=== PATIENT | female | born 1945 | race Caucasian/White ===

== ENCOUNTER → 2016-09-27 13:41 | Outpatient (CLI) | payer MEDICARE, OTHER | END | disposition home or self-care (01) | LOC: D.MRI 13:41 | DX: M54.12 Radiculopathy, cervical region (principal) ==

== ENCOUNTER 2016-10-24 10:49 | Emergency (ER) | payer MEDICARE, OTHER ==
[2016-10-24 11:56] LABS: APPEARANCE CLEAR (CLEAR); BACTERIA MODERATE /hpf (NONE SEEN); BILIRUBIN NEGATIVE (NEGATIVE); COLOR YELLOW (YELLOW); GLUCOSE NEGATIVE (NEGATIVE); KETONE SMALL mg/dL (NEGATIVE); LEUKOCYTE ESTERASE TRACE (NEGATIVE); MUCUS >1+ /lpf (NONE SEEN); NITRITE NEGATIVE (NEGATIVE); PROTEIN NEGATIVE (NEGATIVE); RED CELLS - URINE 0-5 /hpf (0-5); SPECIFIC GRAVITY 1.015 (1.005-1.020); UROBILINOGEN NORMAL (NORMAL)
[2016-10-24 11:58] LABS: BASOPHILS 0.3 % (0-2); EOSINOPHILS 0.5 % (0-7); HEMATOCRIT 40.3 % (36.0-48.0); HEMOGLOBIN 13.4 g/dL (12-16); IMMATURE GRANULOCYTES 0.3 % (0-5); LYMPHOCYTES 19.2 % (15-50); MCH 30.9 pg (26.0-34.0); MCHC 33.3 g/dL (31.0-37.0); MCV 92.9 fL (80.0-100.0); MEAN PLATELET VOLUME 10.1 fL (7.4-10.4); MONOCYTES 4.1 % (2-11); NEUTROPHILS 75.6 % (40-80); PLATELET COUNT 298 10x3/uL (130-400); RBC 4.34 10x6/uL (4.00-5.40); RDW 12.9 % (11.5-14.5); WBC 7.9 10x3/uL (4.8-10.8)
[2016-10-24 12:15] LABS: ALBUMIN 3.9 g/dL (3.4-5.0); ALKALINE PHOSPHATASE 99 U/L (46-116); ALT (SGPT) 30 U/L (10-68); AMYLASE - SERUM 146 U/L (25-115); BILIRUBIN - TOTAL 0.76 mg/dL (0.2-1.3); CALC OSMOLALITY 272 mosm/kg (275-300); CARBON DIOXIDE 24.4 mmol/L (21.0-32.0); CHLORIDE - SERUM 102 mmol/L (98-107); CREATININE - SERUM 0.8 mg/dL (0.6-1.3); GLUCOSE 115 mg/dL (74-106); LIPASE 112 U/L (73-393); POTASSIUM - SERUM 3.9 mmol/L (3.5-5.1); PROTEIN - SERUM 7.6 g/dL (6.4-8.2); SODIUM 136 mmol/L (136-145); UREA NITROGEN 12 mg/dL (7-18); eGFR NON AFRICAN AMERICAN 75 mL/min (90-120)
== END 2016-10-24 15:35 | disposition home or self-care (01) ==
LOC: D.ER 10:49
PROVIDERS: Family Medicine
DX: K59.00 Constipation, unspecified (principal); N39.0 Urinary tract infection, site not specified; R11.2 Nausea with vomiting, unspecified; F17.200 Nicotine dependence, unspecified, uncomplicated

== ENCOUNTER → 2017-12-20 21:07 | Outpatient (CLI) | payer MEDICARE, OTHER | END | disposition home or self-care (01) | LOC: D.MAMMO 15:45 | DX: Z12.31 Encounter for screening mammogram for malignant neoplasm of breast (principal) ==

== ENCOUNTER → 2018-09-14 12:11 | Outpatient (CLI) | payer MEDICARE, OTHER ==
--- NOTE | ~2018-09-14 | ST ---
PATIENT:DEBORA JAMES MEDICAL RECORD: [id number] SEX: F LOCATION:[facility] ORDER #: ADMISSION DATE: 09/14/18 AGE OF PATIENT: 73 REFERRING PHYSICIAN: INTERPRETING PHYSICIAN: JOCE VILLARREAL MD DATE OF SERVICE: 09/14/2018 NUCLEAR STRESS TEST INDICATION: Chest pain, shortness of breath. She was exercised on standard Lexiscan protocol with 26 mCi of sestamibi injected at peak stress, 8 mCi used previously for rest images. FINDINGS: Gated SPECT reveals preserved ejection fraction at 74% with good wall motioning and thickening and brightening throughout all segments. SPECT imaging Cardiolite was used as myocardial fusion agent. There are definite reversible changes at the apex, this includes the anterior apex, inferior apex, and apex itself. The degree of reversibility is moderate. The amount of myocardium involved is small to moderate. OVERALL IMPRESSION: This is an abnormal nuclear stress test. There is reversibility at the apex of the amount of myocardium involved is not large. I would optimize medical management, proceed with coronary angiography only if symptomatology persisted. TRANSINT:[id number] Voice Confirmation ID: [id number] DOCUMENT ID: [id number] JOCE VILLARREAL MD CC: MILES GUO [id number] DICTATION DATE: 09/14/18 1623 DISTRESSER: 09/15/18 0703 DEP CLI 09/14/18 [facility] [address] [place] [address]
== END | disposition home or self-care (01) ==
LOC: D.HCCARDIO 12:11
PROVIDERS: ATTEND Internal Medicine Interventional Cardiology
DX: R06.09 Other forms of dyspnea (principal)

== ENCOUNTER 2018-10-03 08:16 | Outpatient (CLI) | payer MEDICARE, OTHER ==
[~2018-10-03] VITALS: Ht 157.5 cm; Wt 68.2 kg
--- NOTE | ~2018-10-03 | HEMODYNAMI ---
PATIENT:DEBORA JAMES MEDICAL RECORD: [id number] : 49 LOCATION:[facility] ADMISSION DATE: 10/03/18 Generatedon:10/03/201810:23 Patient name: DEBORA JAMES Patient #: [id number] SSN: DO B: 1945 Date of study: 10/03/2018 Page: Of Hemodynamic Procedure Report Patient Data Patient Demographics Procedure consent was obtained First Name: DEBORA Gender: Female Last Name: JACOB : 1945 Middle Initial: WILL Age: 73 year(s) Patient #: [id number] Race: Unknown Additional ID: [id number] Contact details [address]: [address] [place] [address] State: [place] City: [facility] Zip code: [address] Admission Admission Data Admission Date: 10/03/2018 Admission Time: 8:16 Procedure Procedure Types Cath Procedure Diagnostic Procedure LHC LHC w/Coronaries Procedure Description Procedure Date Procedure Date: 10/03/2018 Procedure Start Time: 10:14 Procedure End Time: 10:22 Procedure Staff Name Function Abdifatah Yeung MD Performing Physician Darlin Campbell RT Monitor Noble Gu RN Nurse Curtis Carrera RT Scrub Gadiel Denis RN Fingernail Former Procedure Data Cath Procedure Fluoroscopy Diagnostic fluoroscopy Total fluoroscopy Time: 2.2 time: 2.2 min min Diagnostic fluoroscopy Total fluoroscopy dose: 364 dose: 364 mGy mGy Contrast Material Contrast Material Type Amount (ml) Isovue 300 46 Entry Location Entry Primary Successful Side Size Upsize Upsize Entry Closure Starkey ccessful Closure Location (Fr) 1 (Fr) 2 (Fr) Remarks Device Remarks Radial Right 6 Fr Mechanical artery Short Compression Estimated blood loss: 10 ml Diagnostic catheters Device Type Used For End Catheter Placement DIAGNOSTIC Clifton 110cm 5 Procedure Fr catheter ([id number]) DIAGNOSTIC JL 3.5 5Fr Procedure catheter ([id number]) Procedure Complications No complications Procedure Medications Medication Administration Route Dosage 0.9% NaCl I.V. 100 ml/hr Oxygen etCO2 Nasal cannula 2 l/min Heparin Flush Bag added to field 2 bags (1000units/500ml NS) Lidocaine 2% added to field 20 Radial Cocktail added to field 1 syringe (Verapamil 2mg/Nitro 400mcg/Heparin 1500units) Versed I.V. 2 mg Fentanyl I.V. 50 mcg Radial Cocktail I.A. 1 syringe (Verapamil 2mg/Nitro 400mcg/Heparin 1500units) Fentanyl I.V. 50 mcg Hemodynamics Rest Heart Rate: 64 (bpm) Snapshots Pre Cath Intra NCS Post Cath Vital Signs Time Heart Resp SPO2 etCO2 NIBP (mmHg) Rhythm Pain Sedation Rate (ipm) (%) (mmHg) Status Level (bpm) 10:03:06 61 26 100 0 156/82(114) NSR 0 (11) 10(A) , No pain 10:07:22 61 15 100 36.4 124/66(104) NSR 0 (11) 10(A) , No pain 10:11:34 63 14 100 40.8 123/62(94) NSR 0 (11) 10(A) , No pain 10:15:36 62 18 100 31.9 116/98(108) NSR 0 (11) 9(A) , No pain 10:19:48 67 18 97 42.3 109/60(76) NSR 0 (11) 9(A) , No pain Medications Time Medication Route Dose Verified Delivered Reason Notes Effectiveness by by 10:03:50 0.9% NaCl I.V. 100 Noble Noble Per ml/hr Riccardo Gu physician RN RN 10:03:59 Oxygen etCO2 2 l/min Noble Noble for low 02 Nasal Lorigan Lorigan sats cannula RN RN 10:04:08 Heparin Flush added 2 bags Noble Noble used for Bag to Lorigan Lorigan procedure (1000units/500ml field RN RN NS) 10:04:17 Lidocaine 2% added 20ml Noble Noble for local to vial Lorigan Lorigan anesthetic field RN RN 10:04:26 Radial Cocktail added 1 Noble Noble used for (Verapamil to syringe Lorigan Lorigan procedure 2mg/Nitro field RN RN 400mcg/Heparin 1500units) 10:13:26 Versed I.V. 2 mg Noble Noble for sedation Riccardo Gu RN RN 10:13:35 Fentanyl I.V. 50 mcg Noble Noble for sedation Riccardo Gu RN RN 10:15:05 Radial Cocktail I.A. 1 Nobleisai Gardiner for (Verapamil syringe Riccardo Yeung MD vasodilation 2mg/Nitro RN 400mcg/Heparin 1500units) 10:15:20 Fentanyl I.V. 50 mcg Noble Onble for sedation Riccardo Gu RN auto camp attendant Log Time Note 9:40:05 Gadiel Denis RN sent for patient. Start room use. 9:56:13 Time tracking: Regular hours (M-F 7:00 - 5:00) 9:56:16 Plan of Care:Hemodynamics will remain stable., Cardiac rhythm will remain stable., Comfort level will be maintained., Respiratory function will remain adequate., Patient/ family verbilizes understanding of procedure., Procedure tolerated without complication., Recovers from procedure without complications.. 9:56:21 Patient received from Pre/Post Procedure Room to CCL 1 Alert and oriented. Tansferred to table in Supine position. 9:56:23 Warm blankets applied, and gloria hugger turned on for patient comfort. 9:56:23 Correct patient and procedure confirmed by team. 9:56:24 Signed procedure consent form obtained from patient. 9:56:25 ECG and BP/O2 sat monitors applied to patient. 10:01:55 Vital chart was started 10:01:56 Baseline sample Acquired. 10:02:00 Rhythm: sinus rhythm 10:02:03 Full Disclosure recording started 10:02:08 H&P Date Dictated: 10/03/2018 New H&P dictated by physician.. 10:02:09 Pre-procedure instructions explained to patient. 10:02:10 Pre-op teaching completed and patient verbalized understanding. 10:02:12 Family in patients room. 10:02:14 Patient NPO since Midnight. 10:02:16 Is the patient allergic to Iodine/contrast media? No. 10:02:19 Is patient on blood thinner?No 10:02:20 Patient diabetic? No. 10:02:23 Previous problem with sedation/anesthesia? No ? 10:03:30 Snore? No 10:03:31 Sleep apnea? No 10:03:32 Deviated septum? No 10:03:33 Opens mouth fully? Yes 10:03:34 Sticks out tongue? Yes 10:03:36 Airway obstruction? No ? 10:03:39 Dentures? No ? 10:03:40 Pre procedure: right dorsailis pedis pulse 1+ Palpable, but thready & weak; easily obliterated 10:03:42 Modified Ben's test Ulnar < 7 seconds 10:03:44 Patient pain scale 0/10 ?. 10:03:50 0.9% NaCl 100 ml/hr I.V. was administered by Noble Gu RN; Per physician; 10:03:51 IV patent on arrival in left forearm with 0.9% NaCl at [facility]. 10:03:53 Lab results completed and on chart. 10:03:56 Right Radial & Right Groin area was prepped with chlora-prep and draped in sterile fashion 10:03:58 Alarms reviewed by R. N. 10:03:58 Sharps counted by scrub and verified by R.N. 10:03:59 Oxygen 2 l/min etCO2 Nasal cannula was administered by Noble Gu RN; for low 02 sats; 10:04:08 Heparin Flush Bag (1000units/500ml NS) 2 bags added to field was administered by Noble Gu RN; used for procedure; 10:04:17 Lidocaine 2% 20ml vial added to field was administered by Noble Gu RN; for local anesthetic; 10:04:26 Radial Cocktail (Verapamil 2mg/Nitro 400mcg/Heparin 1500units) 1 syringe added to field was administered by Noble Gu RN; used for procedure; 10:09:14 Use device set Radial Dx or PCI 10:09:15 ACIST Syringe (44412) opened to sterile field. 10:09:17 ACIST Hand Control (66756) opened to sterile field. 10:09:17 ACIST Manifold (79009) opened to sterile field. 10:09:17 Tegaderm 4 x 4 (1626W) opened to sterile field. 10:09:23 Bag Decanter (2001S) opened to sterile field. 10:09:24 Medline Cath Pack ([id number]) opened to sterile field. 10:09:24 DIAGNOSTIC WIRE .035 260cm J wire (108255) opened to sterile field. 10:09:25 MBrace Wrist Support ([id number]) opened to sterile field. 10:09:27 SHEATH 6FR Slender (80-1060) opened to sterile field. 10:12:13 --------ALL STOP TIME OUT------ 10:12:13 Final Timeout: patient, procedure, and site verified with staff and physician. All members of the team are in agreement. 10:12:16 Right groin site verified by team. 10:12:19 Maximum allowable Isovue 300 dose 300ml. Physician notified. (300ml for normal creatinines. For patients with creatinine of 1.7 or higher multiply weight(kg) x 5 divided by creatinine.) 10:12:23 Fire Safety Assessment: A--An alcohol-based skin anteseptic being used preoperatively., C--Open oxygen or nitrous oxide is being used., D--An ESU, laser, or fiber-optic light is being used. 10:12:25 Physical assessment completed. ASA score P 2 - A patient with mild systemic disease as per Abdifatah Yeung MD. 10:12:27 Sedation plan: IV Moderate Sedation Medication:Versed, Fentanyl 10:13:26 Versed 2 mg I.V. was administered by Noble Gu RN; for sedation; 10:13:28 Zero performed for pressure channel P1 10:13:35 Fentanyl 50 mcg I.V. was administered by Noble Gu RN; for sedation; 10:13:38 Procedure started. 10:14:29 Local anesthetic to right radial artery with Lidocaine 2% by Abdifatah Yeung MD.INITIAL ACCESS ONLY 10:14:49 A 6 Fr Short sheath was inserted into the Right Radial artery 10:15:05 Radial Cocktail (Verapamil 2mg/Nitro 400mcg/Heparin 1500units) 1 syringe I.A. was administered by Abdifatah Yeung MD; for vasodilation; 10:15:14 A DIAGNOSTIC Clifton 110cm 5 Fr catheter (282370) was advanced over the wire and used for Procedure. 10:15:20 Fentanyl 50 mcg I.V. was administered by Noble Gu RN; for sedation; 10:15:28 LV gram done using NICKERSON 10:15:33 Injector settings: Ml/sec: 5, Volume: 10, 10:16:05 EF : 60 % 10:16:51 RCA angiography performed. 10:17:18 Catheter exchanged over wire. 10:17:41 A DIAGNOSTIC JL 3.5 5Fr catheter (234343H) was advanced over the wire and used for Procedure. 10:19:05 LCA angiography performed. 10:19:36 Catheter removed. 10:19:43 Procedure ended.(Physican Out) 10:20:14 TR BAND Standard ([id number]) opened to sterile field. 10:20:49 Sheath removed intact; hemostasis achieved with Mechanical Compression to the Right Radial artery. 10:20:54 Fluoroscopy time 02.20 minutes. 10:21:00 Flurop Dose total: 364 10:21:00 Fluoroscopy dose: 364 mGy 10:21:03 Contrast amount:Isovue 300 46ml. 10:21:05 Sharps counted by scrub and verified by R.N. 10:21:09 TR band inflated with 10cc of air. 10:21:12 Post-procedure physical assessment completed. ASA score P 2 - A patient with mild systemic disease as per Abdifatah Yeung MD. 10:21:28 Post procedure rhythm: sinus rhythm 10:21:30 Estimated blood loss: 10 ml 10:21:32 Post procedure instruction explained to patient.Patient verbalizes understanding. 10:21:33 Patient needs reinforcement of post procedure teaching. 10:21:56 Procedure and supply charges have been captured, reviewed, submitted and are correct. 10:21:59 Procedure Complication : No complications 10:22:01 Vital chart was stopped 10:22:01 See physician's report for complete and final results. 10:22:03 Report given to Pre/Post Procedure Room. 10:22:06 Patient transfered to Pre/Post Procedure Room with Bed. 10:22:08 Procedure ended. 10:22:08 Full Disclosure recording stopped 10:22:12 End room use (Document Last) Device Usage Item Name Manufacture Quantity Catalog Hospital Part Current Minimal Lot# / Number Charge Number Stock Stock Serial# Code ACIST Acist 1 35233 635571 108929 944106 20 Syringe Medical (87634) Systems Inc ACIST Hand Acist 1 91425 437058 770932 808038 5 Control Medical (75209) Systems Inc ACIST Acist 1 66587 119561 886624 656172 5 Manifold Medical (46200) Systems Inc Tegaderm 4 3M 1 1626W 325186 791302 972621 5 x 4 (1626W) Bag Microtek 1 2002S 088233 39775 630544 5 Telesofia Medical. (2001S) Medline Medline 1 [id number] 304896 37931 896131 5 Cath Pack ([id number]) DIAGNOSTIC St Harish 1 304321 975174 621825 652231 30 WIRE .035 260cm J wire (693587) MBrace Advanced 1 140-0250-00 016714 72578 421255 5 Wrist Vascular Support Dynamics ([id number]) SHEATH 6FR Terumo 1 [id number] 020193 611365 463144 5 Slender (80-1060) DIAGNOSTIC Terumo 1 40-2323 890761 268121 441490 5 Clifton 110cm 5 Fr catheter (577490) DIAGNOSTIC Cardinal 1 [id number] 281052 777971 674213 5 JL 3.5 5Fr Health catheter (596436X) TR BAND Terumo 1 [id number] 456806 057733 079027 40 Standard ([id number]) Signature Audit [place] Stage Time Signature Unsigned Intra-Procedure 10/03/2018 Darlin Campbell 10:23:34 AM RT(R) Signatures Monitor : Darlin Campbell Signature : RT Date : Time : [address] [place] [address]
[2018-10-03] MEDS ORDERED: VITAMIN D10000 UNI1 PO (08:45)
[2018-10-03] MEDS ORDERED: BAYER CHEWABLE81 MG PO (08:45)
[2018-10-03 08:59] VITALS: BP 137/65; Ht 157.5 cm; Wt 68.2 kg
[2018-10-03 09:09] LABS: BASOPHILS 0.5 % (0-2); EOSINOPHILS 2.9 % (0-7); HEMATOCRIT 36.6 % (36.0-48.0); HEMOGLOBIN 12.4 g/dL (12-16); IMMATURE GRANULOCYTES 0.3 % (0-5); LYMPHOCYTES 36.4 % (15-50); MCH 31.2 pg (26.0-34.0); MCHC 33.9 g/dL (31.0-37.0); MEAN PLATELET VOLUME 9.8 fL (7.4-10.4); MONOCYTES 6.9 % (2-11); PLATELET COUNT 315 10x3/uL (130-400); RBC 3.98 10x6/uL (4.00-5.40); RDW 13.5 % (11.5-14.5); WBC 6.2 10x3/uL (4.8-10.8)
[2018-10-03 09:17] LABS: CALC OSMOLALITY 277 mosm/kg (275-300); CARBON DIOXIDE 26.7 mmol/L (21.0-32.0); CHLORIDE - SERUM 106 mmol/L (98-107); CREATININE - SERUM 0.7 mg/dL (0.6-1.3); GLUCOSE 87 mg/dL (74-106); POTASSIUM - SERUM 4.2 mmol/L (3.5-5.1); SODIUM 140 mmol/L (136-145); UREA NITROGEN 12 mg/dL (7-18); eGFR NON AFRICAN AMERICAN 87 mL/min (90-120)
--- NOTE | 2018-10-03 10:31 | NUR ---
PT ARRIVED BY STRETCHER. PLACED ON MONITORS. FAMILY AT BEDSIDE. VSS. CALL LIGHT WITHIN REACH. ASSESSMENT COMPLETED.
--- NOTE | 2018-10-03 10:45 | NUR ---
PT RESTING COMFORTBLY. VSS. RIGHT RADIAL TR BAND IN PLACE. NO BLEEDING/HEMATOMA NOTED. CALL LIGHT WITHIN REACH.
--- NOTE | 2018-10-03 11:16 | NUR ---
PT RESTING COMFORTABLY. VSS. RIGHT RADIAL TR BAND IN PLACE. NO BLEEDING/HEMATOMA NOTED.
--- NOTE | 2018-10-03 11:30 | NUR ---
DR. VILLARREAL ROUNDED AND SPOKE WITH PT AND PT'S FAMILY.
--- NOTE | 2018-10-03 11:30 | NUR ---
2cc OF AIR REMOVED FROM TR BAND. NO BLEEDING/HEMATOMA NOTED.
--- NOTE | 2018-10-03 11:49 | NUR ---
2CC OF AIR REMOVED FROM TR BAND WITH NO BLEEDING NOTED. VSS. WILL MONITOR CLOSELY.
--- NOTE | 2018-10-03 12:00 | NUR ---
PT AWAKE. SET UP WITH SANDWICH TRAY AND DRINK. 3cc OF AIR REMOVED FROM TR BAND. PT TOLERATED WELL. NO BLEEDING/HEMATOMA NOTED.
--- NOTE | 2018-10-03 12:30 | NUR ---
PT FINISHED EATING. DENIES NAUSEA/PAIN. LEFT AC PIV D/C'D WITH CATH TIP INTACT. PT TOLERATED WELL. INSTRUCTED TO GET UP AND DRESSED.
--- NOTE | 2018-10-03 12:35 | NUR ---
TR BAND REMOVED. DRESSING APLIED. NO BLEEDING NOTED. SMALL DIME SIZED HEMATOMA AT PUNCTURE SITE. PRESSURE HELD AND DRESSING APPLIED. NO SWELLING/BLEEDING NOTED. RIGHT WRIST BRACE IN PLACE. PT INSTRUCTED TO KEEP ON FOR 2 HOURS AFTER SHE ARRIVES HOME.
--- NOTE | 2018-10-03 12:50 | NUR ---
DISCUSSED DISCHARGE INSTRUCTIONS WITH PT. SHE VOICED UNDERSTANDING. RIGHT WRIST DRESSING C/D/I. NO S/S OF HEMATOMA NOTED. NO NEW SWELLING. CAP REFILL < 3 SECS TO RIGHT HAND.
--- NOTE | 2018-10-03 13:00 | NUR ---
PT TAKEN OUT TO VEHICLE BY WHEELCHAIR. NO S/S OF DISTRESS NOTED. ALL BELONGINGS AND PAPERWORK IN HAND.
--- NOTE | 2018-10-13 11:27 | OP ---
PATIENT NAME: DEBORA JAMES MEDICAL RECORD: [id number] :49 LOCATION:[facility] ADMISSION DATE: SURGEON: JOCE VILLARREAL MD DATE OF OPERATION: 10/03/2018 PROCEDURES: 1. Left heart catheterization. 2. Selective coronary angiography. 3. Left ventriculogram. INDICATION: Chest pain compatible with angina and abnormal nuclear stress test. PROCEDURE: After informed consent was obtained and after a detailed description of risks, benefits as well as alternative therapies, the patient elected to proceed with angiogram and heart catheterization. The right radial area was prepped and draped in normal sterile fashion. Right radial artery was cannulated via modified Seldinger technique with placement of 5-Mohawk sheath. All catheters exchanged through this sheath. FINDINGS: Left ventriculogram was performed in the standard 30-degree NICKERSON view reveals good cardiac wall motion throughout all segments. Overall ejection fraction estimated 60%. SELECTIVE CORONARY ANGIOGRAPHY: Left main, left anterior descending, and left circumflex, right coronary artery are all smooth-walled vessels with no angiographic evidence of coronary artery disease. OVERALL IMPRESSION: 1. No angiographic evidence of coronary artery disease. 2. Normal left heart pressures. 3. Normal left ventricular systolic function. Chest pain is noncardiac in etiology. No further cardiac workup needs to be ascertained. TRANSINT:[id number] Voice Confirmation ID: [id number] DOCUMENT ID: [id number] JOCE VILLARREAL MD at 1127 CC: [id number] DICTATION DATE: 10/03/18 1022 ROUGH PLANER TENDER: 10/03/18 1047 DEP CLI 10/03/18 [place] [id number]
--- NOTE | 2018-10-13 11:27 | HP ---
PATIENT: DEBORA AMOS MEDICAL RECORD: [id number] ACCOUNT: [id number] LOCATION:[facility] : 49 ADMISSION DATE: 10/03/18 PCP: MILES GUO DO HISTORY AND PHYSICAL EXAMINATION DIAGNOSES: 1. Angina. 2. Shortness of breath. 3. Abnormal nuclear stress test. HISTORY OF PRESENT ILLNESS: Ms. Amos presents with anginal symptomatology and shortness of breath. Underwent nuclear stress test only revealing a small perfusion defect. Her symptomatology has progressed. We added long-acting nitrates. Her symptomatology continued to progress. With the long-acting nitrates, her heart rate is in the 150 range and her blood pressure is running 110 systolic at home. Hence, no other medical management could be added. Due to the progression of symptomatology, now brought for cardiac catheterization. PHYSICAL EXAMINATION: GENERAL APPEARANCE: Well-nourished, well-developed, appears stated age. Level of distress, comfortable. PSYCHIATRIC: Mental status, alert, normal affect. Orientation, oriented to time, place and person. EYES: Lids and conjunctiva, noninjected. No discharge, no pallor. ENT: Lips, teeth, gums, normal dentition. Oropharynx, no cyanosis, no pallor. NECK: Carotid arteries, bilateral normal upstroke, no bruits, no thrills. JUGULAR VEINS: No jugular venous pressure or distention. CERVICAL LYMPH NODES: Nontender, nonenlarged. THYROID: Not enlarged. Nontender. No nodules. LUNGS: Respiratory effort, unlabored. CHEST: Normal curvature. No thoracic deformity. No chest wall tenderness. Percussion, resonant. Auscultation, clear. No wheezes, no rales, no rhonchi. CARDIOVASCULAR: Precordial exam, nondisplaced. No heaves or pericardial thrills. Rate and rhythm, regular. Heart sounds, normal S1, normal S2. No S3, no gallop, no rub. Systolic murmur, not heard. Diastolic murmur, not heard. EXTREMITIES: No cyanosis, no edema. Peripheral pulses, full and equal in all extremities, except as noted. No bruits appreciated. ABDOMEN: Soft, nondistended. Normal aorta. No bruit. Nontender. No masses. Liver, nontender, no hepatomegaly. Spleen, nontender, no splenomegaly. MUSCULOSKELETAL: No joint tenderness. No joint swelling. No erythema. NEUROLOGICAL: Normal gait, normal strength, normal tone. SKIN: Warm and dry. OVERALL IMPRESSION: Progressive shortness of breath and chest pain compatible with angina. Long-acting nitrates were added. Heart rate and blood pressure optimal. At this time, due to progression of her symptomatology, we will proceed with coronary angiography. Further care depends upon findings of the angiography. TRANSINT:[id number] Voice Confirmation ID: [id number] DOCUMENT ID: [id number] HISTORY AND PHYSICAL [id number] DEBORA AMOS JEFFREY MD at 1127 CC: [id number] DICTATION DATE: 10/03/18 1006 ENROBER: 10/03/18 1016 [facility] CLI 10/03/[address] [address]
== END 2018-10-03 13:00 | disposition home or self-care (01) ==
LOC: D.CATH 08:16
PROVIDERS: ATTEND Internal Medicine Interventional Cardiology
DX: R07.89 Other chest pain (principal); R94.39 Abnormal result of other cardiovascular function study; Z01.812 Encounter for preprocedural laboratory examination

== ENCOUNTER 2018-12-12 17:32 | Emergency (ER) | payer MEDICARE, OTHER ==
[~2018-12-12] VITALS: Ht 157.5 cm; Wt 68.2 kg
[~2018-12-12 17:32] MED LIST: BAYER CHEWABLE81 MG PO; VITAMIN D10000 UNI1 PO
[2018-12-12 17:54] VITALS: Ht 157.5 cm; Wt 68.2 kg
[2018-12-12] MEDS ORDERED: ULTRAM50 MG PO (17:56)
[2018-12-12] MEDS ORDERED: ZOFRAN4 MG PO (17:57)
[2018-12-12] MEDS ORDERED: ROBAXIN500 MG PO (17:57)
[2018-12-12] MEDS ORDERED: BUTALB-APAP-CA1 EACH PO (21:50)
[2018-12-12] MEDS ORDERED: PHENERGAN25 M1 PO (21:50)
[2018-12-12] MEDS ORDERED: ATARAX 25 MG TA25 MG PO (21:50)
[2018-12-12 22:14] VITALS: BP 144/76
== END 2018-12-12 22:14 | disposition home or self-care (01) ==
LOC: D.ER 17:32
DX: R51 Headache (principal); R11.0 Nausea; G47.00 Insomnia, unspecified